=== PATIENT | male | born 1980 | race Hispanic/Latino ===

== ENCOUNTER 2025-01-21 17:46 | Emergency (ER) | payer SELFPAY ==
[~2025-01-21] VITALS: Ht 157.5 cm; Wt 64.4 kg
--- NOTE | 2025-01-21 18:02 | ERN ---
ED Note History of Present Illness Stated Complaint: BACK PAIN Chief Complaint: Low Back Pain/Injury Time Seen by MD: 17:49 Time Seen by Midlevel: 17:53 Dictation: 44-year-old male with no past medical history coming in with complaints of lower back pain onset Sunday. Patient states he was moving some metal pipes when the pipe fell to the ground and hurt his lower back when he tried to stop him from falling. Patient states yesterday he had a ketorolac injection but pain continues so decided to come and be evaluated. Denies any incontinence, saddle paresthesias, unilateral weakness numbness or tingling to the extremities. Denies any hematuria or dysuria. Allergies: Coded Allergies: No Known Allergies (Unverified Allergy, Unknown, 01/21/25) Past Medical History Past Medical History: No Pertinent History Surgical History: None Review of System Dictation Constitutional: Negative for fever,chills, and weight loss Eyes: Negative for injury, pain,redness, and discharge ENT: Negative for injury,pain or swelling Cardiovascular: Negative for chest pain, palpitations, and edema Respiratory: Negative for shortness of breath, cough, and wheezing, Abdomen/GI: Negative for abdominal pain, nausea, vomiting, diarrhea, and constipation Back: Negative for injury and pain : Negative for injury, bleeding and discharge MS/Extremity: Negative for injury and deformity, Complaining of pain to the lower back Skin: Negative for rash, and discoloration Neuro: Negative for headache, weakness, numbness, tingling, and seizure Psych: Negative for suicide ideation, homicidal ideation, and hallucinations Review of Systems: was completed Initial Vital Sign VS Vital Signs Date Time Temp Pulse Resp B/P (MAP) Pulse Ox O2 Delivery O2 Flow Rate FiO2 01/21/25 17:48 98.8 74 16 167/97 98 Room Air 0 Physical Exam Dictation General: awake, alert, NAD Head/Face: Normocephalic, atraumatic Eyes: PERRL, EOMI, vision at baseline ENT: oral cavity clear, TMs clear, no signs of infection Neck: Trachea midline, supple, no nuchal rigidity Cardiovascular: RRR, normal S1/S2, No MRGs, no JVD Respiratory: CTAB, no respiratory distress, No rales or wheezes Abdomen: Soft, non-tender, non-distended, normal bowel sounds, no guarding or rebound. Skin: Warm, dry, normal turgor, no rash MS/Extremity: Pulses equal, no cyanosis, neurovascular intact, FROM, pain on palpation to the left lumbar area Neuro: COAx4, GCS 15, strength 5/5, CN 2-12 intact, normal cerebellar exam, normal gait, Psych: Normal behavior, mood, and affect normal Results (Laboratory/Radiology) X-RAY Comment: [facility] [address] [place] [address] IMAGING REPORT Signed PATIENT: MARÍA GODOY MR#: [id number] : 1980 SEX: M AGE: 44 LOCATION: [facility] ORDER 53 STATUS: REG ER REPORT#: [id number] SERVICE 51 REASON: lower back pain ORDERING PHYSICIAN: ELENO LANE NP PROCEDURE: LUMB 2 3VW - LUMBAR SPINE 2-3VWS Exam Type: LUMBAR SPINE 2-3VWS Clinical Information: lower back pain Comparison: None Findings: Exam of the lumbosacral spine demonstrates no evidence of fracture, subluxation. There are spondylitic changes and there are degenerative changes of the facet joints. There is straightening of the spine consistent with spasm. The other disc spaces are intact. Bone mineralization is normal. There is evidence of degenerative disc disease with disc space narrowing involving L5-S1. Impression: Degenerative disc disease suspected as noted. Other degenerative and chronic changes as noted. DICTATED BY: ELLEN COTO MD DATE: 01/21/251815 ELECTRONICALLY SIGNED BY: ELLEN COTO MD DATE: 01/21/251818 ED Course ED Course Orders Procedure Category Date Status Time Lumbar Spine 2-3vws RAD 01/21/25 Resulted 17:52 Lidocaine (Lidoderm PHA 01/21/25 In Process Patch 5%) 18:30 Ketorolac PHA 01/21/25 In Process Tromethamine 15mg/Ml 18:30 Methocarbamol PHA 01/21/25 In Process (Methocarbamol) 18:30 Current Medications Medications (Trade) Dose Ordered Sig/Yessi Route PRN Reason Start Time Stop Time Status Last Admin Dose Admin Ketorolac Tromethamine (toRADol) 15 mg ONCE ONCE IM 01/21/25 18:30 01/21/25 18:31 Lidocaine (Lidoderm Patch 5%) 1 patch ONCE ONCE TP 01/21/25 18:30 01/21/25 18:31 Methocarbamol (methoCARBamol) 1,000 mg ONCE ONCE PO 01/21/25 18:30 01/21/25 18:31 Vital Signs Date Time Temp Pulse Resp B/P (MAP) Pulse Ox O2 Delivery O2 Flow Rate FiO2 01/21/25 17:48 98.8 74 16 167/97 98 Room Air 0 Medical Decision Making MDM MDM: 44-year-old male with no past medical history coming in with complaints of lower back pain onset Sunday. Patient states he was moving some metal pipes when the pipe fell to the ground and hurt his lower back when he tried to stop him from falling. Patient states yesterday he had a ketorolac injection but pain continues so decided to come and be evaluated. Denies any incontinence, saddle paresthesias, unilateral weakness numbness or tingling to the extremi ties. Denies any hematuria or dysuria. X-ray of the L-spine shows degenerative disc disease, degenerative disc disease with disc space narrowing involving L5 - S1. Discussed findings with the patient. Educated patient to follow up with PCP in 1-2 days and return to the hospital symptoms worsen. Patient verbalized understanding, answered all questions. Differential diagnosis: Muscle strain, lumbar fracture, Rationale: Tests considered and ordered secondary to shared decision making include: Previous outside records reviewed: Old ER visits. Risk of complication and/or morbidity or mortality of patient management: None Medications-Per medication reconciliation Need for hospitalization: Patient does not meet criteria for hospitalization. Need for emergency major/minor surgery: No There are no social concerns with this patient. Prescription drug management Prescriptions will include symptomatic care Patient's prior external medical records from other ER visits were reviewed by me as indicated. Prior testing and results from previous visits were reviewed. Prior tests were taken into account with medical decision making and resource utilization, independent historian/historians were used to obtain complete medical history. I independently interpreted the test that were performed, results were reviewed by me and considered findings on radiology if ordered. Medical management and examination interpretation discussions were had by me with other qualified healthcare professionals as indicated for the patient's care. DX & DISP Disposition: Discharge Departure Impression: Primary Impression: Acute back pain Condition: Stable Scripts Lidocaine (Lidoderm Patch 5%) 5 % Patch 1 PATCH TP DAILY for 7 Days, #7 PATCH 0 Refills may wear up to 12 hours Prov: ELENO LANE NP 01/21/25 Methocarbamol (Methocarbamol) 1,000 Mg Tablet 1000 MG PO TID for 5 Days, #15 TAB Prov: ELENO LANE NP 01/21/25 Referrals: SELF,REFERRAL (PCP) Time of Disposition: 18:29 I have reviewed the case, and I agree with, Diagnosis and Plan I PERFORMED A SUBSTANTIVE PORTION OF THE VISIT. I HAVE REVIEWED AND PERSONALLY MADE AND APPROVE THE MANAGEMENT PLAN THAT IS DOCUMENTED IN THE NOTE BY MYSELF OR THE AP P. I ACKNOWLEDGE FULL RESPONSIBILITY FOR THE PATIENT'S MANAGEMENT PLAN. ELENO LANE NP Jan 21, 2025 18:01
--- NOTE | 2025-01-21 18:19 | HMCIMG ---
Exam Type: LUMBAR SPINE 2-3VWS Clinical Information: lower back pain Comparison: None Findings: Exam of the lumbosacral spine demonstrates no evidence of fracture, subluxation. There are spondylitic changes and there are degenerative changes of the facet joints. There is straightening of the spine consistent with spasm. The other disc spaces are intact. Bone mineralization is normal. There is evidence of degenerative disc disease with disc space narrowing involving L5-S1. Impression: Degenerative disc disease suspected as noted. Other degenerative and chronic changes as noted.
[2025-01-21] MEDS: ketOROlac 15MG/ML VIAL (15MG/ML) IM ONE (18:30)
[2025-01-21] MEDS: methoCARBamol 500 MG TABLET PO ONE (18:31)
[2025-01-21] MEDS ORDERED: METH100054 PO (18:31)
[2025-01-21] MEDS: LIDOCAINE 5% TOPICAL PATCH TP ONE (18:31)
[2025-01-21] MEDS ORDERED: LIDOP TP (18:31)
[2025-01-21 18:58] VITALS: BP 156/89; PULSE 67; RESP 17; TEMP 99.2; O2SAT 98
== END 2025-01-21 19:07 | disposition home or self-care (01) ==
LOC: EDH 17:46
DX: M54.50 Low back pain, unspecified (principal); X50.0XXA Overexertion from strenuous movement or load, initial encounter; X50.9XXA Other and unspecified overexertion or strenuous movements or postures, initial encounter; Y93.89 Activity, other specified; Y92.89 Other specified places as the place of occurrence of the external cause; Y99.0 Civilian activity done for income or pay
CPT/HCPCS: 99284; 72100; 96372; J1885